=== PATIENT | male | born 1950 | race Caucasian/White ===

== ENCOUNTER 2023-06-20 18:56 | Inpatient (IN) ==
[2023-06-20] MEDS ORDERED: IOPAMIDOL 100 ML BOTTLE IV ONE (18:57)
[2023-06-20] MEDS ORDERED: ACETAMINOPHEN 325 MG TABLET PO ONE (19:08)
[2023-06-20] MEDS ORDERED: 0.9 % SODIUM CHLORIDE 1,000 ML IV ONE ×2 (19:08→19:32)
[2023-06-20] MEDS ORDERED: AZITHROMYCIN 500 MG in DEXTROSE 5% IN WATER 250 ML IV ONE (19:14)
[2023-06-20] MEDS ORDERED: cefTRIAXone 2 GM in DEXTROSE 5% IN WATER 50 ML IV ONE (19:14)
[2023-06-20 19:30] LABS: POC Calcium, Ionized 1.21 (1.16-1.32); POC Potassium 3.8 (3.3-5.1)
[2023-06-20] MEDS ORDERED: KETOROLAC 30 MG/ML VIAL IV ONE (19:45)
[2023-06-20 20:09] LABS: Basophils # (Auto) 0.06 K/mcL (0.00-0.30); Basophils % (Auto) 0.4 % (0.0-2.0); Eosinophils # (Auto) 0.35 K/mcL (0.00-0.70); Eosinophils % (Auto) 2.2 % (0.0-7.0); Hematocrit 42.2 % (40.1-51.0); Lymphocytes # (Auto) 1.36 K/mcL (1.50-4.80); Lymphocytes % (Auto) 8.6 % (15.5-49.0); Mean Cell Volume 94.4 fL (80.0-100.0); Mean Corpuscular HGB Conc 33.2 g/dL (31.0-36.0); Mean Platelet Volume 10.8 fL (8.8-12.5); Monocytes # (Auto) 1.18 K/mcL (0.10-0.90); Monocytes % (Auto) 7.5 % (1.0-12.0); Platelet Count 221 K/mcL (140-440); RBC 4.47 M/mcL (4.63-6.08); Red Cell Distribution Width 13.6 % (11.5-14.5); WBC 15.8 K/mcL (4.5-11.0)
[2023-06-20 21:03] LABS: ALT/SGPT 26 U/L (<40); AST/SGOT 28 U/L (<40); Alkaline Phosphatase 125 U/L (39-117); Bilirubin,Direct 0.2 mg/dL (<0.3); Bilirubin,Total 0.7 mg/dL (0.1-1.0); Globulin 2.6 gm/dL (2.2-3.7); proBNP 508.2 pg/mL (<125.0)
[2023-06-20] MEDS ORDERED: MAGNESIUM OXIDE 400 MG TABLET PO ONE (22:10)
[2023-06-21] MEDS ORDERED: ONDANSETRON 4 MG/2 ML VIAL IV PRN ×2 (00:45→07:41)
[2023-06-21] MEDS ORDERED: IPRATROPIUM/ALBUTEROL 3 ML AMPUL.NEB NEB PRN (07:41)
[2023-06-21] MEDS ORDERED: POTASSIUM CHLORIDE 40 MEQ in DEXTROSE 5% IN WATER 500 ML IV PRN (07:41)
[2023-06-21] MEDS ORDERED: SENNOSIDES 1 TABLET PO PRN (07:41)
[2023-06-21] MEDS ORDERED: POLYETHYLENE GLYCOL 3350 17 GM PACKET PO PRN (07:41)
[2023-06-21] MEDS ORDERED: POTASSIUM CHLORIDE 20 MEQ TABLET PO PRN ×2 (07:41)
[2023-06-21] MEDS ORDERED: MAGNESIUM SULFATE 2 GM/50 ML BAG IV PRN (07:41)
[2023-06-21] MEDS ORDERED: ACETAMINOPHEN 325 MG TABLET PO PRN (07:41)
[2023-06-21] MEDS: DOCUSATE SODIUM 100 MG CAPSULE PO SCH ×2 (08:50→20:28)
[2023-06-21] MEDS: ASPIRIN 81 MG TAB.CHEW PO SCH (08:50)
[2023-06-21] MEDS: METOPROLOL SUCCINATE 50 MG TAB.XL.24H PO SCH (08:50)
[2023-06-21] MEDS: TAMSULOSIN 0.4 MG CAPSULE PO SCH (08:50)
[2023-06-21] MEDS: OMEPRAZOLE 20 MG CAPSULE PO SCH (08:50)
[2023-06-21] MEDS: ATORVASTATIN 20 MG TABLET PO SCH (08:50)
[2023-06-21] MEDS: UMECLIDINIUM VILANTEROL INH SCH (08:51)
[2023-06-21] MEDS: ENOXAPARIN 60 MG/0.6 ML SYRINGE SQ SCH ×2 (08:51→20:29)
[2023-06-21] MEDS: FLUTICASONE HFA 220MCG INHALER INH SCH ×2 (08:51→23:23)
[2023-06-21 09:17] LABS: Basophils # (Auto) 0.05 K/mcL (0.00-0.30); Basophils % (Auto) 0.4 % (0.0-2.0); Eosinophils # (Auto) 0.06 K/mcL (0.00-0.70); Eosinophils % (Auto) 0.4 % (0.0-7.0); Hemoglobin 13.8 g/dL (13.7-17.5); Lymphocytes # (Auto) 0.89 K/mcL (1.50-4.80); Lymphocytes % (Auto) 6.4 % (15.5-49.0); Mean Cell Volume 95.6 fL (80.0-100.0); Mean Corpuscular HGB Conc 32.1 g/dL (31.0-36.0); Mean Platelet Volume 10.7 fL (8.8-12.5); Monocytes # (Auto) 1.75 K/mcL (0.10-0.90); Monocytes % (Auto) 12.5 % (1.0-12.0); Neutrophils % (Auto) 79.9 % (38.0-78.0); Platelet Count 199 K/mcL (140-440); Red Cell Distribution Width 13.9 % (11.5-14.5)
[2023-06-21 09:22] LABS: ALT/SGPT 22 U/L (<40); AST/SGOT 24 U/L (<40); Albumin 3.6 gm/dL (3.2-5.2); Albumin/Globulin Ratio 1.4 (1.0-2.3); Alkaline Phosphatase 108 U/L (39-117); Bilirubin,Direct 0.2 mg/dL (<0.3); Bilirubin,Total 0.7 mg/dL (0.1-1.0); Blood Urea Nitrogen 16 mg/dL (8-23); Calcium 8.5 mg/dL (8.6-10.4); Carbon Dioxide 25 mmol/L (22-30); Chloride 103 mmol/L (96-108); Globulin 2.5 gm/dL (2.2-3.7); Glomerular Filtration Rate 54; Glucose 66 mg/dL (70-105); Lactate Dehydrogenase 284 U/L (135-225); Phosphorous 2.2 mg/dL (2.5-4.5); Triglycerides 70 mg/dL (<150); Uric Acid 6.4 mg/dL (2.5-8.0)
[2023-06-21] MEDS: PIPERACILLIN SODIUM/TAZOBACTAM 3.375 GM in DEXTROSE 5% IN WATER 100 ML IV SCH ×2 (10:18→11:01)
[2023-06-21] MEDS: PIPERACILLIN SODIUM/TAZOBACTAM 3.375 GM in DEXTROSE 5% IN WATER 50 ML IV SCH ×2 (11:12→17:12)
[2023-06-21 11:38] LABS: Band Neutrophils % 8 % (0-10); Lymphocytes % 2 % (15-49); Monocytes % (Manual) 6 % (1-12); Platelet Estimate NORMAL (Normal); RBC Morphology NORMAL (Normal); Reactive Lymphocytes 2 % (0-2); Segmented Neutrophils % 82 % (38-78)
[2023-06-21] MEDS ORDERED: LEVOTHYROXINE 100 MCG TABLET PO SCH (21:00)
[2023-06-21] MEDS ORDERED: SERTRALINE 50 MG TABLET PO SCH (21:00)
[2023-06-21] MEDS ORDERED: METOPROLOL SUCCINATE 50 MG TAB.XL.24H PO SCH (21:00)
[2023-06-21 21:19] LABS: Appearance,Urine CLEAR (Clear); Bilirubin,Urine Negative (Negative); Color,Urine YELLOW; Culture Indicated,Urine No; Glucose,Urine (UA) Negative (Negative); Ketones,Urine Negative (Negative); Leukocyte Esterase,Urine Negative /uL (Negative); Nitrate,Urine Negative (Negative); Protein,Urine Negative (Negative); Specific Gravity,Urine 1.042 (1.000-1.035); Urine Blood Negative (Negative); Urobilinogen,Urine Negative
[2023-06-22] MEDS: PIPERACILLIN SODIUM/TAZOBACTAM 3.375 GM in DEXTROSE 5% IN WATER 50 ML IV SCH ×2 (00:09→06:47)
[2023-06-22 06:34] LABS: Basophils # (Auto) 0.03 K/mcL (0.00-0.30); Basophils % (Auto) 0.6 % (0.0-2.0); Eosinophils # (Auto) 0.33 K/mcL (0.00-0.70); Eosinophils % (Auto) 6.6 % (0.0-7.0); Hematocrit 41.4 % (40.1-51.0); Hemoglobin 13.3 g/dL (13.7-17.5); Lymphocytes # (Auto) 0.98 K/mcL (1.50-4.80); Lymphocytes % (Auto) 19.7 % (15.5-49.0); Mean Cell Volume 96.7 fL (80.0-100.0); Mean Corpuscular HGB Conc 32.1 g/dL (31.0-36.0); Monocytes # (Auto) 1.14 K/mcL (0.10-0.90); Monocytes % (Auto) 22.9 % (1.0-12.0); Platelet Count 176 K/mcL (140-440); RBC 4.28 M/mcL (4.63-6.08); Red Cell Distribution Width 13.9 % (11.5-14.5)
[2023-06-22 06:59] LABS: ALT/SGPT 18 U/L (<40); AST/SGOT 23 U/L (<40); Albumin 3.3 gm/dL (3.2-5.2); Albumin/Globulin Ratio 1.3 (1.0-2.3); Alkaline Phosphatase 91 U/L (39-117); Bilirubin,Direct < 0.2 mg/dL (0-0.3); Bilirubin,Total 0.5 mg/dL (0.1-1.0); Blood Urea Nitrogen 15 mg/dL (8-23); Calcium 8.8 mg/dL (8.6-10.4); Carbon Dioxide 25 mmol/L (22-30); Chloride 107 mmol/L (96-108); Globulin 2.6 gm/dL (2.2-3.7); Glomerular Filtration Rate 60; Glucose 68 mg/dL (70-105); Lactate Dehydrogenase 217 U/L (135-225); Phosphorous 2.8 mg/dL (2.5-4.5); Triglycerides 88 mg/dL (<150); Uric Acid 6.2 mg/dL (2.5-8.0)
[2023-06-22] MEDS: ATORVASTATIN 20 MG TABLET PO SCH (08:01)
[2023-06-22] MEDS: ENOXAPARIN 60 MG/0.6 ML SYRINGE SQ SCH (08:01)
[2023-06-22] MEDS: OMEPRAZOLE 20 MG CAPSULE PO SCH (08:01)
[2023-06-22] MEDS: DOCUSATE SODIUM 100 MG CAPSULE PO SCH (08:01)
[2023-06-22] MEDS: TAMSULOSIN 0.4 MG CAPSULE PO SCH (08:01)
[2023-06-22] MEDS: ASPIRIN 81 MG TAB.CHEW PO SCH (08:01)
[2023-06-22] MEDS: METOPROLOL SUCCINATE 50 MG TAB.XL.24H PO SCH (08:01)
[2023-06-22] MEDS: FLUTICASONE HFA 220MCG INHALER INH SCH (08:02)
[2023-06-22] MEDS: UMECLIDINIUM VILANTEROL INH SCH (08:02)
[2023-06-22] MEDS ORDERED: FUROSEMIDE 100 MG/10 ML VIAL IV ONE (08:45)
[2023-06-22] MEDS ORDERED: amLODIPine 10 MG TABLET PO SCH (09:00)
[2023-06-22] MEDS ORDERED: Umeclidinium-Vilanterol [Anoro Ellipta] 62.5-25 mcg Inhaler INH SCH (09:00)
== END 2023-06-22 11:22 | disposition home or self-care (01) | DRG 872 ==
LOC: ED 18:56 → ICU 06-21 01:56
PROVIDERS: ADMIT Internal Medicine; ATTEND Internal Medicine